=== PATIENT | female | born 1995 | race Caucasian/White ===

== ENCOUNTER → 2019-03-16 | Outpatient (REF) | payer OTHER ==
[2019-03-16 19:44] LABS: BASO % 0.4 % (0.0-1.0); EOS # 0.1 10^3/uL (0.0-0.5); EOS % 1.1 % (0.0-3.0); HEMATOCRIT 38.7 % (36.0-47.0); HEMOGLOBIN 13.3 g/dl (12.0-15.5); LYMPH # 2.7 10^3/uL (1.5-5.0); LYMPH % 26.8 % (24.0-44.0); MEAN CORPUSCULAR HGB CONC 34.4 g/dl (32.0-36.5); MEAN CORPUSCULAR VOLUME 81.5 fl (80.0-96.0); MONO # 0.7 10^3/uL (0.0-0.8); MONO % 6.8 % (0.0-5.0); NEUTROPHILS # 6.5 10^3/uL (1.5-8.5); NEUTROPHILS % 64.7 % (36.0-66.0); PLATELET COUNT, AUTOMATED 288 10^3/uL (150-450); RED BLOOD COUNT 4.75 10^6/uL (4.00-5.40); WHITE BLOOD COUNT 10.1 10^3/uL (4.0-10.0)
[2019-03-16 20:02] LABS: FREE T4 0.94 NG/DL (0.76-1.46); PROLACTIN 10.7 NG/ML; THYROID STIMULATING HORMONE 2.33 uIU/ML (0.358-3.740)
[2019-03-20 00:07] LABS: DEHYDROEPIANDROSTERONE SULFATE 298.1 ug/dL (84.8-378.0); TESTOSTERONE FREE (DIRECT) 0.8 pg/mL (0.0-4.2)
== END ==
LOC: M LABDRWAD 18:58
PROVIDERS: ATTEND Nurse Practitioner Women's Health
DX: N92.0 Excessive and frequent menstruation with regular cycle (principal)